=== PATIENT | male | born 1985 | race Caucasian/White ===

== ENCOUNTER 2016-11-05 09:09 | Emergency (ER) | payer OTHER ==
[2016-11-05 09:26] VITALS: BP 154/136
--- NOTE | 2016-11-05 10:09 | UC ---
Skin Complaint HPI - HPI Summary HPI Summary: bump on scrotum for several weeks. At one point it looked like a pustule and he squeezed some clear fluid out of it. Now it's just a bump. Mildly itchy. Occasionally looks red in the area. Itches more after sweating. Recent tinea infeciton on feet, concerned it may have spread to scrotum - History of Current Complaint Chief Complaint: UCSkin Time Seen by Provider: 11/05/16 09:55 Stated Complaint: SKIN COMPLAINT Hx Obtained From: Patient Onset/Duration: Gradual Onset, Lasting Weeks - 3 Timing: Constant Onset Severity: Mild Current Severity: Mild Location: Other - left side scrotum Character: Pruritus, Raised Aggravating: Touch Alleviating: Other - sweating Associated Signs & Symptoms: Positive: Rash Similar Episode/Dx as: has had genital warts in past - Allergy/Home Medications Allergies/Adverse Reactions: Allergies Allergy/AdvReac Type Severity Reaction Status Date / Time No Known Allergies Allergy Verified 11/05/16 09:21 Review of Systems Constitutional: Negative Skin: Other - bump on scrotum Eyes: Negative ENT: Negative Respiratory: Negative Cardiovascular: Negative Gastrointestinal: Negative Genitourinary: Negative Motor: Negative Neurovascular: Negative Musculoskeletal: Negative Neurological: Negative Psychological: Negative All Other Systems Reviewed And Are Negative: Yes PMH/Surg Hx/FS Hx/Imm Hx Previously Healthy: Yes - Surgical History Surgical History: None - Family History Known Family History: Positive: None - Social History Occupation: Employed Full-time Lives: With Family Alcohol Use: Weekly Substance Use Type: None Smoking Status (MU): Never Smoked Tobacco Physical Exam Triage Information Reviewed: Yes Appearance: Well-Appearing, No Pain Distress, Well-Nourished Vital Signs: Initial Vital Signs Temp 98.9 F 11/05/16 09:22 Pulse 94 11/05/16 09:22 Resp 14 11/05/16 09:22 BP 154/136 11/05/16 09:22 Pulse Ox 100 11/05/16 09:22 Vital Signs Reviewed: Yes Eye Exam: Normal Neck exam: Normal Respiratory Exam: Normal Cardiovascular Exam: Normal Abdominal Exam: Normal Musculoskeletal Exam: Normal Neurological Exam: Normal Psychological Exam: Normal Skin Exam: Other - one isolated nodule left side of scrotum. No umbilication. No warty appearance. Mobile, nontender. Skin is mildly reddened in area, not scaly, no clear demarcated border. Course/Dx - Differential Diagnoses - Skin Complaint Differential Diagnoses: Contact Dermatitis - Diagnoses Provider Diagnoses: tinea cruris Discharge - Discharge Plan Condition: Stable Disposition: HOME Prescriptions: Fluconazole 150 MG (NF) [Diflucan 150 mg (NF)] 150 mg PO ONCE #3 tab Patient Education Materials: Jock Itch (ED) Referrals: No Primary Care Phys,NOPCP [Primary Care Provider] - Additional Instructions: The little bump does not have any characteristics of genital warts, or molluscum contagiosum, or Herpes. It appears to be a resolving scar from a superficial bacterial infection. Hydrocortisone cream should help it resolve. If there is any component of "jock itch", the oral medication will resolve it.
== END 2016-11-05 10:17 | disposition home or self-care (01) ==
LOC: UCCORT 09:09
DX: B35.6 Tinea cruris (principal)
CPT/HCPCS: 99212; G0463

== ENCOUNTER 2018-06-06 13:07 | Emergency (ER) | payer OTHER ==
[2018-06-06 13:33] VITALS: BP 142/78
--- NOTE | 2018-06-06 15:08 | UC ---
Complaint Male HPI - HPI Summary HPI Summary: 32 yo male was seen in urgent care in [place] 4 day ago for urinary urgency and gross hematuria GC and Chlamydia (-) given three days of cipro now improved requests more antibiotics - History of Current Complaint Chief Complaint: UCGU Stated Complaint: URINARY COMPLAINT Time Seen by Provider: 06/06/18 13:36 Hx Obtained From: Patient Onset/Duration: Sudden Onset, Lasting Days Timing: Constant Severity Initially: Severe Severity Currently: None Pain Intensity: 0 Pain Scale Used: 0-10 Numeric Aggravating Factor(s): Voiding - Allergies/Home Medications Allergies/Adverse Reactions: Allergies Allergy/AdvReac Type Severity Reaction Status Date / Time No Known Allergies Allergy Verified 11/05/16 09:21 Home Medications: Home Medications Ciprofloxacin HCl [Cipro] 500 mg PO BID 06/06/18 [History Confirmed 06/06/18] FLUoxetine CAP* [Prozac CAP*] 10 mg PO DAILY 06/06/18 [History Confirmed ] PMH/Surg Hx/FS Hx/Imm Hx Previously Healthy: Yes - Surgical History Surgical History: None - Family History Known Family History: Positive: Hypertension - Social History Alcohol Use: Weekly Substance Use Type: None Smoking Status (MU): Never Smoked Tobacco Review of Systems Constitutional: Negative Skin: Negative Eyes: Negative ENT: Negative Respiratory: Negative Cardiovascular: Negative Gastrointestinal: Negative Genitourinary: Hematuria, Frequency Motor: Negative Neurovascular: Negative Musculoskeletal: Negative Neurological: Negative Psychological: Negative Is Patient Immunocompromised?: No All Other Systems Reviewed And Are Negative: Yes Physical Exam Triage Information Reviewed: Yes Appearance: Well-Appearing, No Pain Distress, Well-Nourished Vital Signs: Initial Vital Signs Temp 97.5 F 06/06/18 13:26 Pulse 63 06/06/18 13:26 Resp 14 06/06/18 13:26 BP 142/78 06/06/18 13:26 Pulse Ox 100 06/06/18 13:26 Vital Signs Reviewed: Yes Eyes: Positive: Conjunctiva Clear ENT: Positive: Hearing grossly normal. Negative: Nasal congestion, Nasal drainage, Trismus, Muffled voice, Sinus tenderness, Uvula midline Neck: Positive: Supple, Nontender, No Lymphadenopathy Respiratory: Positive: Lungs clear, Normal breath sounds, No respiratory distress Cardiovascular: Positive: RRR, No Murmur Abdomen Description: Positive: Nontender, No Organomegaly, Soft. Negative: CVA Tenderness (R), CVA Tenderness (L) Bowel Sounds: Positive: Present Male Genital Exam: Positive: Normal Genitalia Musculoskeletal: Positive: ROM Intact, No Edema Neurological: Positive: Alert Psychological Exam: Normal Skin Exam: Normal Diagnostics - Laboratory Diagnostic Studies Completed/Ordered: urine dip (-) Complaint Male Course/Dx - Differential Dx/Diagnosis Provider Diagnoses: hematuria by history. suspect he passed a stone Discharge - Sign-Out/Discharge Documenting (check all that apply): Patient Departure - Discharge Plan Condition: Stable Disposition: HOME Prescriptions: Cephalexin CAP* [Keflex CAP*] 500 mg PO BID #8 cap Patient Education Materials: Hematuria (ED) Referrals: Padma Ruff MD [Medical Doctor] - As Soon As Possible - Billing Disposition and Condition Condition: STABLE Disposition: Home
== END 2018-06-06 14:24 | disposition home or self-care (01) ==
LOC: UCCORT 13:07
DX: R31.9 Hematuria, unspecified (principal)
CPT/HCPCS: 81003; 87086; 87491; 87591; 99212; G0463